=== PATIENT | male | born 1955 | race Two or more races ===

== ENCOUNTER 2021-08-31 08:29 | Day surgery (SDC) | payer OTHER ==
[2021-08-31] MEDS ORDERED: POLY119PG PO (17:09)
[2021-08-31] MEDS ORDERED: NEURONTIN600 M1 PO (17:09)
[2021-08-31] MEDS ORDERED: PERCOCET 5-3251 EACH PO (17:09)
== END 2021-08-31 20:45 | disposition home or self-care (01) ==
LOC: CIR.AMB 08:29
PROVIDERS: ATTEND Surgery
DX: K40.90 Unilateral inguinal hernia, without obstruction or gangrene, not specified as recurrent (principal)